=== PATIENT | female | born 1960 | race Caucasian/White ===

== ENCOUNTER → 2023-11-07 17:38 | Outpatient (REF) | payer OTHER, SELFPAY | LOC: WDC 17:38 | PROVIDERS: ATTENDING PHYSICIAN Nurse Practitioner Family | DX: Z12.31 Encounter for screening mammogram for malignant neoplasm of breast (principal) | CPT/HCPCS: 77063; 77067 ==

== ENCOUNTER → 2023-12-14 08:58 | Outpatient (REF) | payer MEDICARE, SELFPAY | LOC: RCS 08:58 | PROVIDERS: ATTENDING PHYSICIAN Nurse Practitioner Family | DX: R01.1 Cardiac murmur, unspecified (principal) | CPT/HCPCS: 93306 ==

== ENCOUNTER → 2024-11-19 14:46 | Outpatient (REF) | payer MEDICARE, SELFPAY | LOC: WDC 14:46 | PROVIDERS: ATTENDING PHYSICIAN Nurse Practitioner Family | DX: Z12.31 Encounter for screening mammogram for malignant neoplasm of breast (principal) | CPT/HCPCS: 77063; 77067 ==